=== PATIENT | male | born 1955 | race American Indian/Alaskan Native ===

== ENCOUNTER 2016-08-27 06:03 | Day surgery (SDC) | payer MEDICARE ==
[2016-08-13 11:36] LABS: Platelet Count 120 K/mm3 (140-440)
[2016-08-13 11:41] LABS: Basophils % (Auto) 0.7 % (0.0-1.8); Hematocrit 34.9 % (35.5-45.6); Hemoglobin 11.5 gm/dl (11.8-15.2); Mean Corpuscular HGB Conc 33 % (32-34); Mean Corpuscular Hemoglobin 31 pg (28-32); Mean Corpuscular Volume 93 fl (84-94); Red Blood Count 3.76 M/mm3 (3.65-5.03); Red Cell Distribution Width 13.9 % (13.2-15.2); White Blood Count 3.2 K/mm3 (4.5-11.0)
[2016-08-13 11:48] LABS: Alanine Aminotransferase 18 units/L (7-56); Albumin 3.8 g/dL (3.9-5); Albumin/Globulin Ratio 1.2 %; Alkaline Phosphatase 93 units/L (35-129); Anion Gap 15 mmol/L; Bilirubin,Total 0.2 mg/dL (0.1-1.2); Blood Urea Nitrogen 11 mg/dL (9-20); Carbon Dioxide 28 mmol/L (22-30); Chloride 102.2 mmol/L (98-107); Glucose 101 mg/dL (75-100); Potassium 4.1 mmol/L (3.6-5.0); Sodium 141 mmol/L (137-145)
[2016-08-27] MEDS ORDERED: NACL BACTERIOSTATIC INFILTRATI ONE (06:21)
--- NOTE | 2016-08-27 06:38 | Anesthesia Consultation ---
Anesthesia Consult and Med Hx Date of service: 08/27/16 - Airway Anesthetic Teeth Evaluation: Dentures ROM Head & Neck: Adequate Mental/Hyoid Distance: Adequate Mallampati Class: Class II Intubation Access Assessment: Probably Good - Pulmonary Exam CTA: Yes - Cardiac Exam Cardiac Exam: RRR - Pre-Operative Health Status ASA Pre-Surgery Classification: ASA3 Proposed Anesthetic Plan: General - Pulmonary Hx Smoking: Yes Hx Asthma: No COPD: Yes - Cardiovascular System Hx Hypertension: Yes Hx Coronary Artery Disease: No (h/o CHF, no documented EF) Hx Cardia Arrhythmia: No - Central Nervous System Hx Neuromuscular Disorder: 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
--- NOTE | 2016-08-27 06:39 | Anesthesia Day of Surgery ---
Anesthesia Day of Surgery - Day of Surgery Patient Examined: Yes Patient H&P Reviewed: Yes Patient is NPO: Yes Cardiac Clearance: Yes
[2016-08-27] MEDS ORDERED: VERSED IV NR (07:00)
[2016-08-27] MEDS ORDERED: PEPCID PO NR (07:00)
[2016-08-27] MEDS ORDERED: NACL 0.9% 1000 ML 1,000 ML IV SCH (07:00)
[2016-08-27] MEDS ORDERED: ZOFRAN IV PRN (07:19)
[2016-08-27] MEDS ORDERED: MORPHINE IV PRN (07:19)
[2016-08-27] MEDS ORDERED: NORCO 5/325 PO PRN (07:19)
[2016-08-27] MEDS ORDERED: PROVENTIL IH NR (07:30)
[2016-08-27] MEDS ORDERED: DIPRIVAN 10 MG/ML IV ONE (07:31)
[2016-08-27] MEDS ORDERED: SUBLIMAZE ONE (07:31)
--- NOTE | 2016-08-27 07:32 | Discharge Summary ---
Short Stay Discharge Plan Activity: advance as tolerated Follow up with: ECTOR JI MD [Staff Physician] - 7 Days
[2016-08-27] MEDS ORDERED: ROCEPHIN/NS 1 GM/50 ML 1 GM/50 ML BAG IV SCH (08:00)
[2016-08-27] MEDS ORDERED: XYLOCAINE MPF 2% ONE (08:44)
--- NOTE | 2016-08-27 08:44 | Short Stay Summary ---
Short Stay Documentation Date of service: 08/27/16 - History H&P: obtained from office - Allergies and Medications Current Medications: Allergies No Known Allergies Allergy (Unverified 08/07/14 09:35) Home Medications Medication Instructions Recorded Confirmed Last Taken Type Acamprosate Calcium 2 tab PO TID 09/05/14 08/07/16 08/26/16 History Citalopram [celeXA] 40 mg PO QDAY 09/05/14 08/07/16 08/26/16 History Levothyroxine [Synthroid] 0.050 mg PO QAM 09/05/14 08/07/16 08/27/16 04:30 History QUEtiapine [SEROquel] 100 mg PO BID 09/05/14 08/07/16 08/26/16 History carBAMazepine [Carbamazepine ER] 100 mg PO TID 09/05/14 08/07/16 08/26/16 History clonazePAM 0.5 mg PO BID 09/05/14 08/07/16 08/26/16 History lamoTRIgine [lamoTRIgine ER] 25 mg PO BID 09/05/14 08/07/16 08/26/16 History HYDROcodone/APAP 5-325 [[place] 1 each PO Q6HR PRN #15 tablet 09/06/14 08/07/16 Rx 5-325 mg TAB] Benzonatate [Tessalon Perles] 100 mg PO Q8HR 08/07/16 08/07/16 08/26/16 History Cefuroxime [Ceftin] 250 mg PO Q12H 08/07/16 08/07/16 08/26/16 History Doxazosin Mesylate [Cardura] 2 mg PO DAILY 08/07/16 08/07/16 08/26/16 History Fluticasone/Salmeterol [Advair 1 - 2 puff IN 08/07/16 08/27/16 04:30 History 250-50 Diskus] Ipratropium/Albuter (Nf) 2 puff IH QID 08/07/16 08/07/16 08/27/16 04:30 History [Combivent (Nf)] NIFEdipine XL [Procardia Xl] 90 mg PO QDAY 08/07/16 08/07/16 08/27/16 04:30 History Sertraline [Zoloft] 50 mg PO QDAY 08/07/16 08/07/16 08/26/16 History Amoxicillin [Amoxicillin TAB] 875 mg PO BID 08/26/16 08/26/16 08/27/16 04:30 History Valsartan [Diovan] 160 mg PO QDAY 08/26/16 08/26/16 08/27/16 04:30 History ALBUTEROL Inhaler [Proair] 2 puff IH QID PRN 08/27/16 08/27/16 08/27/16 04:30 History Active Medications Acetaminophen/Hydrocodone Bitart ([place] 5/325) 1 each PO ONCE PRN PRN Reason: Pain, Moderate (4-6) Stop: 08/27/16 16:00 Albuterol (Proventil) 2.5 mg IH PREOP NR Stop: 08/27/16 23:59 Last Admin: 08/27/16 07:25 Dose: 2.5 mg Famotidine (Pepcid) 20 mg PO PREOP NR Stop: 08/27/16 23:01 Last Admin: 08/27/16 06:53 Dose: 20 mg Sodium Chloride (Nacl 0.9% 1000 Ml) 1,000 mls @ 100 mls/hr IV DIRECT MITCHELL Last Admin: 08/27/16 06:50 Dose: 100 mls/hr Ceftriaxone Sodium (Rocephin/Ns 1 Gm/50 Ml) 1 gm in 50 mls @ 100 mls/hr IV PREOP MITCHELL PRN Reason: Protocol Stop: 08/27/16 23:59 Midazolam HCl (Versed) 2 mg IV PREOP NR Stop: 08/27/16 23:01 Last Admin: 08/27/16 08:02 Dose: 1 mg Morphine Sulfate (Morphine) 2 mg IV Q10MIN PRN PRN Reason: Pain, Moderate (4-6) Stop: 08/27/16 16:00 Ondansetron HCl (Zofran) 4 mg IV ONCE PRN PRN Reason: Nausea And Vomiting Stop: 08/27/16 16:00 - Brief post op/procedure progress note Date of procedure: 08/27/16 Pre-op diagnosis: usd, perneal uretrhostomy rec uit Post-op diagnosis: same Procedure: cysto, rpg, uretrha dilation Anesthesia: GETA Findings: perin urethr w/ stx Surgeon: ECTOR JI Estimated blood loss: minimal Condition: stable - Hospital course Hospital course: orpacuhome - Disposition Condition at discharge: Good Disposition: DISCHARGED TO HOME OR SELFCARE Short Stay Discharge Plan Activity: advance as tolerated Diet: advance as tolerated Follow up with: ECTOR JI MD [Staff Physician] - 7 Days
[2016-08-27] MEDS ORDERED: ROBINUL ONE (08:45)
[2016-08-27] MEDS ORDERED: DECADRON ONE (08:46)
[2016-08-27] MEDS ORDERED: ZOFRAN ONE (08:46)
[2016-08-27] MEDS ORDERED: ePHEDrine SULFATE ONE (08:53)
[2016-08-27] MEDS ORDERED: NACL 0.9% IRRIGATION ONE (08:59)
[2016-08-27] MEDS ORDERED: NEO SYNEPHRINE/NS Syringe(OR USE) IV ONE (09:15)
[2016-08-27 10:33] VITALS: BP 132/62
--- NOTE | 2016-08-27 10:37 | Fluoroscopy Report ---
RETROGRADE PYELOGRAM: History: Urethral stricture. Fluoroscopy was provided by radiology during retrograde pyelogram by Dr. Thayer. 12 fluoroscopic images were captured. There is adequate filling of the ureters and intrarenal collecting systems with no filling defects or anatomic abnormalities identified. Impression: Normal exam.
--- NOTE | 2016-08-27 13:22 | Post Anesthesia Evaluation ---
- Post Anesthesia Evaluation Patient Participated: Yes Airway Patent: Yes Stable Respiratory Function: Yes Nausea/Vomiting: No Temp > 96.8F: Yes Pain Manageable: Yes Adequeate Hydration: Yes Anesthesia Complications: No Block Receding Appropriately: Not Applicable Patient on Ventilator: No
--- NOTE | 2016-08-27 22:56 | Admit Criteria Form ---
Admission Criteria Documentation: AMBULATORY SURGERY EXCEPTION CRITERIA Ambulatory Surgery Exception Criteria ( Place 'X' for any and all applicable criteria): Surgery or procedure performed on ambulatory basis may require inpatient stay for[A] ANY ONE of the following(1)(2)(3)(4)(5)(6)(7)(8)(9): [X] I. A preoperative situation, condition, or finding that warrants inpatient stay as indicated by ANY ONE of the following: [] a) Inpatient care needed because of severity of a disease or condition rather than the surgery (eg, severe cardiac or respiratory disease, severe infection) (15) (16 ) (17) (18) [] b) Emergent procedure (eg, angioplasty for acute ischemia)(19) [] c) Complex surgical approach or situation as indicated by ANY ONE of the following(3): [] i) Open approach needed instead of usual endoscopic, transcatheter, or other less invasive procedure [] ii) Difficult approach because of previous operation [] iii) Airway monitoring required after open neck procedures(20)(21) [] iv) Large mass requiring unusually extensive dissection [] v) Additional complicating feature requiring inpatient care (eg, drain management)(22(23): [X] d) Major surgery in a pt with high anesthetic risk as indicated by ANY ONE of the following (2)(3)(5)(7)(8): [X] i) ASA risk class III or higher (severe systemic disease impairing function) [D] [] ii) Advanced age (eg, older than 85 years)(14)(24) [] iii) Symptomatic heart failure(25) [] iv) Symptomatic asthma or COPD(8)(21) [] v) Morbid obesity with hemodynamic or respiratory problems(20)( 21)(26)(27) [] vi) Obstructive sleep apnea(20)(21) [] vii) Former premature infants who are younger than 60 weeks [] viii) High risk for severe postoperative abnormalities (eg, severe postoperative hypocalcemia after parathyroidectomy for severe hyperparathyroidism)(27)( 28) [] ix) Unstable angina(25) [] e) Drug-related risk requiring inpatient stay as indicated by ANY ONE of the following(5)(10)(14)(32)(33) [] i) Procedure requires discontinuing drugs or other therapy (eg , antiarrhythmic medication, antiseizure medication), which necessitates inpatient observation or treatment.(18)(31) [] ii) Major surgery and high risk drug use as indicated by ANY ONE of the following: [] 1) Active abuse of cocaine or similar drug [] 2) Monoamine oxidase inhibitor use [] 3) Other drug identified as posing risk [] f) Inadequate outpatient care situation as indicated by ANY ONE of the following(5)(10)(14)(32)(33) [] i) Patient lives remote from medical facility and procedure has urgent complication potential, and temporary nearby residence cannot be arranged [] ii) Patient will have postprocedure incapacitation and inadequate assistance at home, or alternative level of care cannot be arranged. [] iii) Patient will have long general anesthesia or procedure side effect resolution time, and competent person to stay with patient on first postoperative night at home or alternative level of care cannot be arranged. []iv) Other inadequate outpatient situation that cannot be handled by other means [] II. A perioperative event, condition, or finding that warrants inpatient stay as indicated by ANY ONE of the following (1)(2)(3): [] a) Inadequate physiologic recovery: cardiovascular, respiratory, or hemodynamic status not normal or near preoperative baseline(18) [] b) Hemodynamic instability [] c) Patient not alert with near normal or baseline mental status [] d) Temperature not normal or as expected and not appropriate for outpatient treatment of condition [] e) Ambulatory or appropriate activity level status not yet achieved post procedure [E](34)(35)(36) [] f) Operative site not appropriate (eg, unexpected or excessive drainage or bleeding) [] g) Postoperative effects not resolved or adequately managed (eg, significant pain or vomiting not appropriate for outpatient or next level of care)(10)(12) [] h) Complicating features requiring inpatient care as indicated by ANY ONE of the following(37): [] i) Severe complications of procedure (eg, bowel injury, airway compromise, vascular injury,severe hemorrhage) [] ii) Extensive (eg, dissection far beyond usual scope of procedure ) or prolonged (eg, 120 minutes beyond usual) surgery needed requiring inpatient postoperative care [] iii) Conversion to an open or complex procedure that requires inpatient care (eg, open vs laparoscopic cholecystectomy, abdominal vs vaginal hysterectomy)(38) [] iv) Comorbid condition or test result identified during or post procedure that requires inpatient care (7) [] v) Malignant hyperthermia(30) [] vi) Other complicating feature requiring inpatient care(22)(23) Inpatient stay may be needed until ALL of the following are present (1)(2)(3)(4) (5)(6)(10)(14)(33)(40): []a) Physiologic recovery: cardiovascular, respiratory, and hemodynamic status normal or near preoperative baseline []b) Hemodynamic stability []c) Patient alert, with near normal or baseline mental status []d) Temperature appropriate: patient afebrile or temperature appropriate for outpt treatment of condition []e) Activity level appropriate: ambulatory or appropriate activity level post procedure []f) Operative site appropriate as indicated by ALL of the following: []i) Site dry or with expected drainage []ii) Any blood noted is as expected for procedure. []g) Postoperative effects resolved or managed as indicated by ALL of the following: []i) Pain management appropriate for outpatient (or next level of) care(10) []ii) Minimal nausea and vomiting: if present, successfully treated with oral medication(12) []iii) Headache, dizziness, or drowsiness (if present) are mild. []h) Voiding status acceptable as indicated by ANY ONE of the following: []i) Voiding spontaneously []ii) No voiding but instructions given for follow-up in 6 to 8 hours []iii) Urinary catheter in place, and instructions given for follow-up []i) Complicating features requiring inpatient care manageable at a lower level of care(37) []j) Comorbid conditions manageable at a lower level of care(37) The original [employer] content created by [employer] has been revised. The portions of the content which have been revised are identified through the use of italic text or in bold, and [email or web address] [employer] has neither reviewed nor approved the modified material. All other unmodified content is copyright [employer]. Please see references footnoted in the original [employer] edition 2016 Admission Criteria Met: Yes
--- NOTE | 2016-09-22 10:54 | Operative Report ---
PREOPERATIVE DIAGNOSES: Urethral strictures, perineal urethrostomy, recurrent infections. POSTOPERATIVE DIAGNOSES: Urethral strictures, perineal urethrostomy, recurrent infections. PROCEDURE: Cystoscopy, bilateral RPG, urethral dilation. SURGEON: Vahid Thayer MD ANESTHESIA: General. SPECIMENS: None. ESTIMATED BLOOD LOSS: Minimal. COMPLICATIONS: None. FINDINGS: Perineal urethral stenosis. Digital rectal exam negative. Testicles normal. CLINICAL INDICATIONS: Counseled RCBA, antibiotics, SCDs. The patient with recurrent infections, history of recurrent dilation, diagnostic surveillance given the patient's past history and overactive bladder. Antibiotics, SCDs. DESCRIPTION OF PROCEDURE: The patient was transferred to the OR suite in supine position, anesthesia, dorsal lithotomy, prepped and draped in standard fashion. At this point, we attempted to visualize the perineal urethral opening. Glidewire was passed. Unable to pass the scope or flexible scope due to the stenosis. This was dilated to a 22-24 [place]an. Then, the rigid scope was passed into the bladder and inspected. Pancystoscopy with 30 and 70 degree lens demonstrated no tumors, lesions, or other abnormality. At this point, no tumors, lesions, or other abnormality. At this point, the scope was withdrawn. A Chase catheter was inserted. A 20-[place] Chase catheter inserted. Balloon inflated. Exam under anesthesia, bilateral descended testicles, no nodules. Digital rectal exam, prostate, no nodules. The patient was awakened and transferred to the PACU in good and stable condition. JOB# [id number] ATS/NTS
== END 2016-08-27 11:05 | disposition home or self-care (01) ==
LOC: OR 06:03
PROVIDERS: ATTEND Urology
DX: N35.9 Urethral stricture, unspecified (principal); J44.9 Chronic obstructive pulmonary disease, unspecified; I11.0 Hypertensive heart disease with heart failure; I50.9 Heart failure, unspecified; E03.9 Hypothyroidism, unspecified; F17.210 Nicotine dependence, cigarettes, uncomplicated; G40.909 Epilepsy, unspecified, not intractable, without status epilepticus; Z93.6 Other artificial openings of urinary tract status; Z82.49 Family history of ischemic heart disease and other diseases of the circulatory system; Z81.8 Family history of other mental and behavioral disorders; Z81.1 Family history of alcohol abuse and dependence; Z83.1 Family history of other infectious and parasitic diseases
CPT/HCPCS: 36415; 52281; 74420; 80053; 85025; A4217; C1758; C1769; J0696; J1100; J2250; J2370; J2405; J2704; J3010; J7030; Q9967

== ENCOUNTER 2017-08-10 10:27 | Outpatient (CLI) | payer MEDICARE ==
--- NOTE | 2017-08-10 12:11 | Ultrasound Report ---
ULTRASOUND RENAL BILATERAL HISTORY: Renal cyst. TECHNIQUE: transabdominal ultrasound with color Doppler interrogation. FINDINGS: The right kidney measures 10.3cm. Right renal cortex: 1.2cm. The left kidney measures 10.2cm. Left renal cortex: 1.1cm. Scans of the kidneys show normal renal contours. There is normal central calyceal clustering and good preservation of the cortical thickness. There is no evidence of mass or hydronephrosis. The views of the bladder and the region of the ureters appear normal. There appears to be a tiny 5 mm cyst in the superior right kidney. IMPRESSION: Tiny, simple right renal cyst measuring 5 mm. Otherwise, unremarkable renal ultrasound.
== END 2017-08-10 10:28 | disposition home or self-care (01) ==
LOC: US 10:27
PROVIDERS: ATTEND Urology
DX: Q61.00 Congenital renal cyst, unspecified (principal); N35.8 Other urethral stricture
CPT/HCPCS: 76770